=== PATIENT | female | born 1970 ===

== ENCOUNTER 2022-01-06 13:01 | Emergency (ER) | payer SELFPAY ==
[~2022-01-06] VITALS: Ht 157.5 cm; Wt 77.3 kg
[2022-01-06 13:26] VITALS: BP 141/74
== END 2022-01-06 18:52 | disposition left against medical advice (07) ==
LOC: ER 18:50
DX: R42 Dizziness and giddiness (principal); Z53.21 Procedure and treatment not carried out due to patient leaving prior to being seen by health care provider